=== PATIENT | male | born 1970 | race Caucasian/White ===

== ENCOUNTER 2016-11-28 23:02 | Emergency (ER) | payer MEDICAID, OTHER ==
[~2016-11-28] VITALS: Ht 175.3 cm; Wt 83.9 kg
[2016-11-28 23:15] VITALS: BP 162/87
[2016-11-29 00:04] LABS: BUN/Creatinine Ratio 15.9; Calcium 8.8 mg/dL (8.5-10.1); Potassium 3.8 mmol/L (3.5-5.1)
[2016-11-29 00:07] LABS: Total Protein 8.2 g/dL (6.4-8.2)
[2016-11-29 00:11] LABS: Basophils # (auto) 0.5 uL; DEFINITIVE VIEW TRANSMISSION; Eosinophils # (auto) 0.3 uL; Hemoglobin 17.4 g/dL (13.5-17.5)
[2016-11-29 00:12] LABS: Eosinophils % (auto) 2.6 % (0.0-7.0); Hematocrit 52.3 % (41.0-53.0); Lymphocytes # (auto) 3.1 uL; Lymphocytes % (auto) 25.2 % (10.0-50.0); Mean Corpuscular Hemoglobin 31.4 pg (28.0-32.0); Mean Corpuscular Hgb Conc. 33.3 g/dL (32.0-36.0); Mean Corpuscular Volume 94.3 fL (80.0-100.0); Monocytes % (auto) 8.2 % (0.0-12.0); Neutrophils # (auto) 7.5 uL; Platelet Count (auto) 297 10^3/uL (140-450); Red Cell Distribution Width 13.6 % (11.6-16.0); White Blood Cell 12.4 10^3/uL (4.4-10.8)
[2016-11-29 00:13] LABS: Basophils % (auto) 0.4 % (0.0-2.0); Neutrophils % (auto) 63.6 % (37.0-80.0)
[2016-11-29 01:00] LABS: Urine Bilirubin Negative (Negative); Urine Blood TRACE /uL (Negative); Urine Color Yellow (Yellow); Urine Glucose Normal (Normal); Urine Ketone Negative (Negative); Urine Nitrite Negative (Negative); Urine RBC 3 /hpf (0 - 3); Urine Squamous Epithelial Cell FEW /hpf (<5); Urine Urobilinogen Normal (Negative); Urine pH 6.5 (5.0-8.0)
== END 2016-11-29 01:30 | disposition left against medical advice (07) ==
LOC: ER 23:06
DX: M54.5 Low back pain (principal); Z53.21 Procedure and treatment not carried out due to patient leaving prior to being seen by health care provider
CPT/HCPCS: 36415; 72100; 80053; 81001; 85025